=== PATIENT | male | born 1950 | race Caucasian/White ===

== ENCOUNTER 2021-08-03 12:58 | Emergency (ER) | payer MEDICARE, BC ==
[2021-08-03] MEDS ORDERED: Diphtheria,Pertussis(Acell),Tetanus Vaccine 0.5 ML SDV IM ONE (13:16)
--- NOTE | 2021-08-03 13:18 | EDM.PDOC ---
ED HPI GENERAL MEDICAL PROBLEM - General Chief Complaint: Laceration Stated Complaint: puncture wound Time Seen by Provider: 08/03/21 13:10 Source of Information: Reports: Patient, RN Notes Reviewed History Limitations: Reports: No Limitations - History of Present Illness INITIAL COMMENTS - FREE TEXT/NARRATIVE: This patient presents to the emergency room for evaluation of a puncture wound to his left forearm. He states he got a deer this morning and was cleaning it when he moved it and the antler injured his arm. He denies other injuries or concerns. Left Arm Pain Score (Numeric/FACES): 2 - Related Data Allergies Allergy/AdvReac Type Severity Reaction Status Date / Time No Known Allergies Allergy Verified 08/03/21 13:05 ED ROS GENERAL - Review of Systems Review Of Systems: Comprehensive ROS is negative, except as noted in HPI. ED EXAM, SKIN/RASH Exam: See Below Exam Limited By: No Limitations General Appearance: Alert, No Apparent Distress Respiratory/Chest: No Respiratory Distress, No Accessory Muscle Use Extremities: Other (1 cm circular abrasion to left forearm. It is missing tissue.) Neurological: Alert, Oriented Course - Vital Signs Last Recorded V/S: Last Vital Signs Temp 36.5 C 08/03/21 13:06 Pulse 92 08/03/21 13:06 Resp 18 08/03/21 13:06 BP 136/87 08/03/21 13:06 Pulse Ox 95 08/03/21 13:06 - Orders/Labs/Meds Meds: Medications Discontinued Medications Generic Name Dose Route Start Last Admin Trade Name Freq PRN Reason Stop Dose Admin Diphtheria/Tetanus/Acell Pertussis 0.5 ml 08/03/21 13:16 08/03/21 13:23 Diphtheria,Pertussis(Acell),Tetanus Vaccine 0.5 Ml Sdv IM 08/03/21 13:17 0.5 ml .ONCE ONE Administration - Re-Assessments/Exams Free Text/Narrative Re-Assessment/Exam: This patient presents to the emergency department for evaluation of a wound to his arm. There is tissue missing and I am not able to pull the wound together for suturing. It was cleaned well, covered with antibiotic ointment and a dressing. It will heal by secondary intention. Patient was started on Keflex to be used 3 times a day for 10 7 days and he was given a Tdap booster today. He will follow up with his primary care provider as needed. 08/03/21 14:56 Departure - Departure Time of Disposition: 13:30 Disposition: Home, Self-Care 01 Condition: Good Clinical Impression: Laceration - Discharge Information Instructions: Puncture Wound, [id number] Referrals: PCP,Unknown [Primary Care Provider] - Forms: ED Department Discharge Additional Instructions: Keep the wound clean, apply antibiotic ointment and a bandage. Start Keflex, 500 mg 3 times per day and use until it is gone. Recheck with your primary care provider as needed for signs of infection or other concerns. Sepsis Event Note (ED) - Evaluation Sepsis Screening Result: No Definite Risk - Focused Exam Vital Signs: Vital Signs Temp Pulse Resp BP Pulse Ox 08/03/21 13:06 36.5 C 92 18 136/87 95
[2021-08-03] MEDS ORDERED: Cephalexin 500 MG Cap ONE (13:30)
== END 2021-08-03 13:35 | disposition home or self-care (01) ==
LOC: LB.ED 12:58
DX: S51.812A Laceration without foreign body of left forearm, initial encounter (principal); Z23 Encounter for immunization; W26.8XXA Contact with other sharp object(s), not elsewhere classified, initial encounter
CPT/HCPCS: 90471; 90715; 99282; A9270